=== PATIENT | male | born 1945 ===

== ENCOUNTER 2018-03-21 09:56 | Outpatient (CLI) | payer OTHER | END 2018-03-21 10:03 | disposition home or self-care (01) | LOC: NUCLEAR 09:56 | DX: C61 Malignant neoplasm of prostate (principal) | CPT/HCPCS: 78320; 78306; A9503 ==

== ENCOUNTER 2018-10-03 10:26 | Outpatient (CLI) | payer OTHER | END 2018-10-03 13:29 | disposition home or self-care (01) | LOC: NUCLEAR 10:26 | DX: C61 Malignant neoplasm of prostate (principal); C77.5 Secondary and unspecified malignant neoplasm of intrapelvic lymph nodes; D64.81 Anemia due to antineoplastic chemotherapy; N39.0 Urinary tract infection, site not specified | CPT/HCPCS: 78815; A9552 ==

== ENCOUNTER 2019-01-23 10:17 | Outpatient (CLI) | payer OTHER | END 2019-01-23 11:00 | disposition home or self-care (01) | LOC: NUCLEAR 10:17 | DX: C61 Malignant neoplasm of prostate (principal); C77.5 Secondary and unspecified malignant neoplasm of intrapelvic lymph nodes; N39.0 Urinary tract infection, site not specified; Z08 Encounter for follow-up examination after completed treatment for malignant neoplasm | CPT/HCPCS: 78815; A9552 ==

== ENCOUNTER 2019-04-01 07:49 | Outpatient (CLI) | payer OTHER | END 2019-04-01 07:53 | disposition home or self-care (01) | LOC: TOM 07:49 | DX: C61 Malignant neoplasm of prostate (principal); C77.5 Secondary and unspecified malignant neoplasm of intrapelvic lymph nodes; C78.7 Secondary malignant neoplasm of liver and intrahepatic bile duct; C79.51 Secondary malignant neoplasm of bone; D64.81 Anemia due to antineoplastic chemotherapy ==